=== PATIENT | female | born 1940 | race Caucasian/White ===

== ENCOUNTER 2018-05-31 16:51 | Observation (INO) | payer MEDICARE, OTHER ==
[2018-05-31] MEDS: Amoxicillin/Clavulanate K 875-125 MG Tab PO SCH (19:48)
[2018-05-31] MEDS: Non-Formulary Medication 1 Each (Fluticasone/Salmeterol [Advair 250-50 Diskus] 1 PUFF) INH SCH (19:48)
[2018-05-31] MEDS: Non-Formulary Medication 1 Each (Metoprolol Tartrate [Metoprolol Tartrate] 50 MG) PO SCH (19:51)
[2018-05-31] MEDS ORDERED: Famotidine 20 MG Tab PO PRN (20:00)
--- NOTE | 2018-05-31 23:27 | ER ---
HPI: A 78-year-old lady who comes in with complaints of shortness of breath. She states that she gets short of breath with any little type of activity or movement that she does around her home. The patient has been dealing with this for a few days. She was seen in the emergency room on Monday and again in the clinic on Monday. She was given nebulizer treatments and some prednisone. She does not feel this has helped her. She states that her throat is sore, and she is now feeling like her pulse is racing after she takes her nebulizer treatment. The patient states that she does have some coughing, but it is nonproductive. PAST MEDICAL HISTORY: Includes anxiety and COPD. OBJECTIVE: GENERAL APPEARANCE: The patient is awake and alert. No respiratory distress at this time. VITAL SIGNS: Initially show a blood pressure of 168/85, O2 sats are 84% on room air, respirations 22, pulse 80, temp is 97.5, 2 L of oxygen were started and this brought her sats up to 95% fairly quickly. Physical exam, oral mucous membranes moist. Posterior pharynx shows moderate redness. There is some posterior wall drainage as well. The patient does have bimaxillary sinus tenderness with palpation. NECK: Supple. LUNGS: Reveals significant reduced reduction in air exchange, but the lung sounds are clear. I do not hear any rales, wheezes, or rhonchi today. CARDIAC: Heart sounds distinct without murmurs. SKIN: Warm and dry. LABS: CBC shows a slightly elevated white count of 11.3. Neutrophils are also elevated at 89.6. CMP is unremarkable. DIAGNOSES: 1. Shortness of breath with hypoxia. due to chronic obstructive pulmonary disease. 2. Sinusitis. 3. Pharyngitis. TREATMENT PLAN: A chest x-ray was obtained and there is no sign of infection or pneumothorax. The patient is feeling much better on oxygen and her sats remain in the low to mid 90s on 2 L of O2. In discussing the patient's case with nursing staff, it appears that she needs to be admitted on observation in order to be connected with respiratory therapy in order to get set up for home O2, so that is what we will do. The patient will be admitted for observation for shortness of breath/COPD. Secondary diagnosis is sinusitis/pharyngitis. I will start her on Augmentin, and we will keep her on O2 of 2 L overnight until she can follow up tomorrow with respiratory therapy. The patient has no further questions. CRS/MODL /[id number] MTDD
--- NOTE | 2018-06-01 00:27 | HP ---
HISTORY OF PRESENT ILLNESS: This 78-year-old lady has been admitted for observation through the emergency room for COPD with shortness of breath. She is hypoxic. Her O2 sats are in the mid to upper 80s without oxygen. With 2 L of oxygen applied, her sats come up into the low to mid 90s. The patient states that with any kind of exertion, she becomes very short of breath and is unable to really do anything at home. PAST MEDICAL HISTORY: Includes: 1. COPD. 2. GERD. 3. Hypertension. 4. History of tachycardia. CURRENT MEDICATIONS: Zantac 150 mg a day, metoprolol tartrate 50 mg b.i.d., Advair 250/50 one puff b.i.d. OBJECTIVE: GENERAL APPEARANCE: The patient is awake and alert. She was short of breath upon arrival to the emergency room. After starting the oxygen, her shortness of breath resolved and she has been breathing normally since. VITAL SIGNS: Initially taken in the emergency room reveal a blood pressure of 168/85, respirations 22, O2 sats 95%, she is afebrile, pulse is 80. LUNGS: Exam today reveals reduced air exchange, but the lungs are clear. CARDIAC: Heart sounds distinct without murmurs. HEENT: Oral mucous membranes moist. Pharynx is moderately erythematous. Neck is supple. Ears, TMs are dull, otherwise normal. SKIN: Warm and dry. ABDOMEN: Soft and nontender. ASSESSMENT AND PLAN: The patient is being admitted for observation. Arrangements will be made with respiratory therapy tomorrow as I feel the patient needs to be on home O2 in order to safely return home. We will start her on Augmentin for sinus infection and pharyngitis and further evaluation can be done tomorrow. Hopefully, she can be started on home O2 and discharged. CRS/MODL
[2018-06-01] MEDS: Albuterol 0.083% 2.5 MG/3 ML Neb Soln NEB PRN ×2 (04:00→09:32)
[2018-06-01] MEDS: Non-Formulary Medication 1 Each (Fluticasone/Salmeterol [Advair 250-50 Diskus] 1 PUFF) INH SCH (08:22)
[2018-06-01] MEDS: Non-Formulary Medication 1 Each (Metoprolol Tartrate [Metoprolol Tartrate] 50 MG) PO SCH (08:23)
[2018-06-01] MEDS ORDERED: cefTRIAXone 1 GM Vial IM ONE (08:43)
[2018-06-01] MEDS: Amoxicillin/Clavulanate K 875-125 MG Tab PO SCH (09:30)
--- NOTE | 2018-06-01 10:09 | PCM.DCSUM1 ---
Discharge Summary - Hospital Course HPI Initial Comments: 78 yr female with COPD, sinus infection, and decrease in SpO2 to 80% on room air. She is feeling short of breath and has been having little activity related to this. She would benefit from home oxygen and she would benefit from portable oxygen for increase in her mobility. [facility]. Diagnosis: Stroke: No - Discharge Data Discharge Date: 06/01/18 Discharge Disposition: Home, Self-Care 01 Condition: Good - Patient Summary/Data Consults: Consultations 05/31/18 18:07 Consult to Pulmonary Rehabilitation [CONS] Routine Comment: Physician Instructions: - Patient Instructions Diet: Heart Healthy Diet Activity: As Tolerated, Rest and Relax Today Activity, Other: Home oxygen needed Driving: Do Not Drive Showering/Bathing: January Shower Notify Provider of: Fever - Discharge Plan *PRESCRIPTION DRUG MONITORING PROGRAM REVIEWED*: Not Applicable *COPY OF PRESCRIPTION DRUG MONITORING REPORT IN PATIENT KENNEDI: Not Applicable Home Medications: Home Meds Fluticasone/Salmeterol [Advair 250-50 Diskus] 1 puff INH BID 08/10/14 [History] Metoprolol Tartrate 50 mg PO BID 08/10/14 [History] Ranitidine HCl [Zantac] 150 mg PO DAILY PRN 11/19/15 [History] Patient Handouts: Hypoxemia, How to Use a Nebulizer, Adult, Chronic Obstructive Pulmonary Disease, [id number], Pursed Lip Breathing Forms: ED Department Discharge Referrals: Tory Saba, [employer] [Primary Care Provider] - - Discharge Summary/Plan Comment DC Time >30 min.: No Discharge Summary/Plan Comment: Follow-up in clinic in 7-10 days. Home oxygen ordered today. Pt would benefit from portable oxygen to maintain mobility and independence. Continue with home nebulizer. May try 1/2 dose Duo-neb. and add Saline to each nebulizer. This was ordered at the pharmacy for you. Augmentin liquid (antibiotic) is at the pharmacy too. Start 2x/day for 10 days. - General Info Date of Service: 06/01/18 Subjective Update: Pt states she didn't take her Augmentin at home. She was having problems swallowing the pill and thought it was potassium. Functional Status: Reports: Tolerating Diet, Incentive Spirometry - Review of Systems General: Reports: Fatigue. Denies: Fever HEENT: Reports: No Symptoms Pulmonary: Reports: Shortness of Breath, Cough (Reports yellow phlegm today), Wheezing Cardiovascular: Reports: Dyspnea on Exertion Gastrointestinal: Reports: No Symptoms Genitourinary: Reports: No Symptoms Musculoskeletal: Reports: No Symptoms Skin: Reports: No Symptoms Neurological: Reports: No Symptoms Psychiatric: Reports: No Symptoms - Patient Data Vitals - Most Recent: Last Vital Signs Temp 97.4 F 06/01/18 08:00 Pulse 71 06/01/18 08:00 Resp 18 06/01/18 08:00 BP 148/74 H 06/01/18 08:00 Pulse Ox 86 L 06/01/18 09:43 Weight - Most Recent: 116 lb 3.2 oz Lab Results - Last 24 hrs: Laboratory Results - last 24 hr 05/31/18 05/31/18 06/01/18 Range/Units 17:30 17:30 08:42 WBC 11.3 H D 13.3 H (4.0-11.0) K/uL RBC 4.99 4.82 (3.80-5.80) M/uL Hgb 14.4 14.0 (11.5-16.5) g/dL Hct 43.5 42.4 (37.0-47.0) % MCV 87 88 (76-96) fL MCH 28.9 29.0 (27.0-32.0) pg MCHC 33.1 33.0 (31.0-35.0) g/dL RDW 15.0 15.1 (11.0-16.0) % Plt Count 275 291 (150-500) K/uL MPV 9.9 9.6 (6.0-10.0) fL Neut % (Auto) 89.6 H 66.8 (45.0-70.0) % Lymph % (Auto) 7.5 L 20.1 (20.0-40.0) % [place] % (Auto) 2.8 L 12.3 H (3.0-10.0) % Eos % (Auto) 0.0 L 0.7 L (1.0-5.0) % Baso % (Auto) 0.1 0.1 (0.0-0.5) % Neut # (Auto) 10.10 H 8.89 H (2.00-7.50) K/uL Lymph # (Auto) 0.84 L 2.67 (1.50-4.00) K/uL [place] # (Auto) 0.32 1.64 H (0.20-0.80) K/uL Eos # (Auto) 0.00 L 0.09 (0.04-0.40) K/uL Baso # (Auto) 0.01 L 0.01 L (0.02-0.10) K/uL Sodium 141 (136-145) mmol/L Potassium 3.8 (3.5-5.1) mmol/L Chloride 102 (98-107) mmol/L Carbon Dioxide 30.9 (21.0-32.0) mmol/L Anion Gap 11.9 (5.0-15.0) mmol/L BUN 15 (8-26) mg/dL Creatinine 0.69 (0.55-1.02) mg/dL Est Cr Clr Drug Dosing 56.48 mL/min Estimated GFR (MDRD) > 60 (>60) MLS/MIN BUN/Creatinine Ratio 21.7 (6-25) Glucose 122 H (74-100) mg/dL Calcium 8.7 (8.5-10.1) mg/dL Total Bilirubin 0.5 D (0.0-1.0) mg/dL AST 19 (15-37) U/L ALT 23 (12-78) U/L Alkaline Phosphatase 76 (46-116) U/L Total Protein 6.9 (6.4-8.2) g/dL Albumin 3.7 (3.4-5.0) g/dL Globulin 3.2 (2.2-4.2) g/dL Albumin/Globulin Ratio 1.2 (0.8-2.0) Med Orders - Current: Current Medications Albuterol (Proventil Neb Soln) 2.5 mg NEB Q4H PRN PRN Reason: Wheezing Last Admin: 06/01/18 09:32 Dose: 2.5 mg Amoxicillin/Clavulanate Potassium (Augmentin 875 Mg/125 Mg) 1 tab PO Q12HR MJ Last Admin: 06/01/18 09:30 Dose: 1 tab Famotidine (Pepcid) 20 mg PO DAILY PRN PRN Reason: heartburn Non-Formulary Medication (Fluticasone/Salmeterol [Advair 250-50 Diskus]) 1 puff INH BID [facility] Last Admin: 06/01/18 08:22 Dose: 1 puff Non-Formulary Medication (Metoprolol Tartrate [Metoprolol Tartrate]) 50 mg PO BID [facility] Last Admin: 06/01/18 08:23 Dose: 50 mg Discontinued Medications Ceftriaxone Sodium (Rocephin) 1 gm IM ONETIME ONE Stop: 06/01/18 08:44 Last Admin: 06/01/18 09:42 Dose: 1 gm - Exam Quality Assessment: Reports: Supplemental Oxygen General: Reports: Alert, Oriented HEENT: Reports: Mucous Membr. Moist/[place] Neck: Reports: Supple, Trachea Midline Lungs: Reports: Normal Respiratory Effort, Decreased Breath Sounds (bilaterally) , Wheezing, Other (SpO2 78% on exertion on RA.). Denies: Crackles Cardiovascular: Reports: Regular Rate, Regular Rhythm GI/Abdominal Exam: Soft, Non-Tender Skin: Reports: Warm, Dry Psy/Mental Status: Reports: Alert, Normal Affect, Normal Mood
[2018-06-01 12:52] VITALS: BP 154/78
--- NOTE | 2018-06-03 09:35 | CR ---
DATE OF SERVICE: 05/31/18 CLINICAL DATA: SOB. AP PORTABLE CHEST: Comparison is made to a prior exam dated 05/27/18. The heart and lungs are stable. No evidence of acute intrathoracic disease. [id number] [facility]
== END 2018-06-01 14:25 | disposition home or self-care (01) ==
LOC: LB.ED 16:51 → LB.MS 18:02 → UNDOADMOB 18:14 → LB.MS 18:14
PROVIDERS: ADMIT Physician Assistant; ATTEND Physician Assistant
DX: J44.9 Chronic obstructive pulmonary disease, unspecified (principal); I10 Essential (primary) hypertension; K21.9 Gastro-esophageal reflux disease without esophagitis; Z79.51 Long term (current) use of inhaled steroids; Z79.899 Other long term (current) drug therapy
CPT/HCPCS: 36415; 71045; 80053; 85025; 96372; 99285-25; A9270-GY; J0696

== ENCOUNTER 2019-02-28 10:56 | Day surgery (SDC) | payer MEDICARE, OTHER ==
[~2019-02-28 10:56] MED LIST: Sodium Chloride 0.9% 1,000 ML IV SCH
[2019-02-28] MEDS ORDERED: Propofol 1,000 MG/100 ML SDV ONE (13:09)
[2019-02-28] MEDS ORDERED: Albuterol/Ipratropium 3.0-0.5 MG/3 ML Neb Soln ONE (13:27)
[2019-02-28] MEDS ORDERED: Albuterol/Ipratropium 3.0-0.5 MG/3 ML Neb Soln NEB PRN (13:30)
--- NOTE | 2019-02-28 15:16 | OR ---
DATE OF OPERATION: 02/28/2019 PREOPERATIVE DIAGNOSIS: Ashraf's esophagus. POSTOPERATIVE DIAGNOSIS: Ashraf's esophagus. PROCEDURE: Attempted esophagogastroduodenoscopy/incomplete. ANESTHESIA: MAC. ESTIMATED BLOOD LOSS: None. COMPLICATIONS: None. INDICATIONS FOR PROCEDURE: The patient is a 79-year-old female with history of Ashraf's esophagus discovered 3 years ago, no change in her reflux at all. Over the last 3 years, she has been complaining of a chronic cough. She is an active smoker. DESCRIPTION OF THE PROCEDURE: Informed consent was obtained with the patient. The patient was taken to the operating room and placed on the table in the left lateral decubitus position. Monitored anesthesia care was administered. The patient was coughing throughout the procedure. Esophagogastroscope was then advanced through the oral cavity. It did reach down to the level of the pharynx, but her hypopharynx unable to intubate the esophagus secondary to secretions as well as persistent coughing. Multiple attempts at re -positioning and re-intubation attempted, however, unable to complete the procedure. The scope was then withdrawn. FINDINGS: Incomplete EGD, secondary to secretions and coughing. RECOMMENDATIONS: Given the degree of COPD and then persistent cough, would not recommend persistent surveillance for Ashraf's at this time. May attempt again once cough has resolved. May consider trying PPI therapy prophylatically. LUCI /[id number] MEMO
[2019-02-28 15:28] VITALS: BP 129/59; PULSE 77
== END 2019-02-28 15:20 | disposition home or self-care (01) ==
LOC: LB.SDS 10:56
PROVIDERS: ATTEND Surgery
DX: K21.9 Gastro-esophageal reflux disease without esophagitis (principal); K22.70 Barrett's esophagus without dysplasia; J44.9 Chronic obstructive pulmonary disease, unspecified; F17.210 Nicotine dependence, cigarettes, uncomplicated; Z79.899 Other long term (current) drug therapy
CPT/HCPCS: 43200; J2704; J7030; 43246; J7620-GY

== ENCOUNTER 2019-03-18 18:23 | Observation (INO) | payer MEDICARE, OTHER ==
[2019-03-18] MEDS ORDERED: Sodium Chloride 0.9% 1,000 ML IV SCH (18:45)
[2019-03-18] MEDS: HYDROmorphone 2 MG/ML Syringe IVPUSH PRN ×2 (18:48→23:40)
--- NOTE | 2019-03-18 18:57 | EDM.PDOC ---
ED HPI GENERAL MEDICAL PROBLEM - General Chief Complaint: General Stated Complaint: LEFT FLANK PAIN Time Seen by Provider: 03/18/19 18:40 Source of Information: Reports: Patient, RN History Limitations: Reports: No Limitations - History of Present Illness INITIAL COMMENTS - FREE TEXT/NARRATIVE: 79 yr female presents with left sided flank pain. States pain started about 130pm today. States she tried drinking extra water today and tried everything she could think of and the pain is worse. states little appetite, but never hungry. States little urine output at times. States no history of kidney stones. She does have a hx of COPD and did user her nebulizer and oxygen before coming in to the ER. She does have hypertension and takes Metoprolol bid. States she did have a hard BM today and did have some supper tonight. - Related Data Allergies Allergy/AdvReac Type Severity Reaction Status Date / Time No Known Allergies Allergy Verified 03/18/19 19:07 Home Meds: Home Meds Fluticasone/Salmeterol [Advair 250-50 Diskus] 1 puff INH BID 08/10/14 [History] Metoprolol Tartrate 50 mg PO BID 08/10/14 [History] Albuterol/Ipratropium [DuoNeb 3.0-0.5 MG/3 ML] 3 ml NEB Q4HR PRN 02/26/19 [ History] Past Medical History HEENT History: Reports: Cataract, Impaired Vision, Macular Degeneration, Other ( See Below) Other HEENT History: wears glasses Cardiovascular History: Reports: Blood Clots/VTE/DVT, Hypertension, SOB on Exertion, Other (See Below) Other Cardiovascular History: pt states she has a faster heart rate; blood clot Left leg 2017 Respiratory History: Reports: COPD, SOB Gastrointestinal History: Reports: GERD Genitourinary History: Reports: None, Urinary Incontinence [employer] 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: Musculoskeletal History: Reports: Fracture Other Musculoskeletal History: Broken arm Neurological History: Reports: Seizure, Other (See Below) Other Neuro History: epilepsy as a child - stopped in 1970s Psychiatric History: Reports: Depression Endocrine/Metabolic History: Reports: None Oncologic (Cancer) History: Reports: Breast - Past Surgical History HEENT Surgical History: Reports: None, Cataract Surgery Cardiovascular Surgical History: Reports: None Respiratory Surgical History: Reports: None GI Surgical History: Reports: Cholecystectomy, EGD, Esophageal Dilatation Female Surgical History: Reports: Hysterectomy Other Musculoskeletal Surgeries/Procedures:: Titanium everardo in left upper arm Oncologic Surgical History: Reports: Lumpectomy, Mastectomy, Other (See Below) Other Oncologic Surgeries/Procedures: Left side mastectomy Dermatological Surgical History: Reports: None Social & Family History - Family History Family Medical History: Noncontributory - Caffeine Use Caffeine Use: Reports: Coffee Other Caffeine Use: 12 ED ROS GENERAL - Review of Systems Review Of Systems: See Below Constitutional: Reports: Weakness. Denies: Fever, Chills HEENT: Reports: Glasses Respiratory: Reports: Cough. Denies: Wheezing, Hemoptysis Cardiovascular: Reports: No Symptoms GI/Abdominal: Reports: Decreased Appetite, Other (some constipation). Denies: Hematochezia, Melena, Nausea, Vomiting : Reports: Flank Pain, Other (decrease in urination) Musculoskeletal: Reports: No Symptoms Skin: Reports: No Symptoms Neurological: Reports: No Symptoms Psychiatric: Reports: No Symptoms ED EXAM, GENERAL - Physical Exam Exam: See Below Exam Limited By: No Limitations General Appearance: Alert, No Apparent Distress Ears: Hearing Grossly Normal Nose: Normal Inspection, Normal Mucosa Throat/Mouth: Normal Inspection, Normal Lips, Normal Voice, No Airway Compromise Head: Atraumatic, Normocephalic Neck: Normal Inspection, Supple, Non-Tender Respiratory/Chest: No Respiratory Distress, Normal Breath Sounds Cardiovascular: Normal Peripheral Pulses, Regular Rate, Rhythm, No Edema GI/Abdominal: Normal Bowel Sounds, Soft, Non-Tender Extremities: Normal Inspection, Normal Range of Motion, Non-Tender Neurological: Alert, Oriented, Normal Cognition Psychiatric: Normal Affect, Normal Mood Skin Exam: Warm, Dry, Normal Color Course - Vital Signs Last Recorded V/S: Last Vital Signs Temp 97.7 F 03/18/19 21:50 Pulse 89 03/18/19 21:50 Resp 22 H 03/18/19 21:50 BP 170/79 H 03/18/19 21:50 Pulse Ox 96 03/18/19 21:50 - Orders/Labs/Meds Orders: Active Orders 24 hr Category Date Time Status Abdomen Pelvis wo Cont [CT] Stat Exams 03/18/19 18:45 Taken HYDROmorphone [Dilaudid] Med 03/18/19 18:46 Active 0.5 mg IVPUSH Q3H PRN Medication Orders Albuterol/Ipratropium (Duoneb 3.0-0.5 Mg/3 Ml) 3 ml INH Q4H PRN PRN Reason: Shortness of Breath Last Admin: 03/18/19 21:55 Dose: 3 ml Hydromorphone HCl (Dilaudid) 0.5 mg IVPUSH Q3H PRN PRN Reason: Pain Last Admin: 03/18/19 23:40 Dose: 0.5 mg Promethazine HCl 25 mg/ Sodium (Chloride) 51 mls @ 200 mls/hr IV Q6H PRN PRN Reason: Nausea/Vomiting Lactated Ringer's (Ringers, Lactated) 1,000 mls @ 75 mls/hr IV ASDIRECTED [facility] Non-Formulary Medication (Fluticasone/Salmeterol [Advair 250-50 Diskus]) 1 puff INH BID [facility] Last Admin: 03/18/19 22:00 Dose: Not Given Non-Formulary Medication (Metoprolol Tartrate [Metoprolol Tartrate]) 50 mg PO BID [facility] Last Admin: 03/18/19 22:10 Dose: 50 mg Labs: Laboratory Tests 03/18/19 03/18/19 03/18/19 Range/Units 18:42 18:42 18:42 WBC 12.0 H (4.0-11.0) K/uL RBC 5.12 (3.80-5.80) M/uL Hgb 14.8 (11.5-16.5) g/dL Hct 45.1 (37.0-47.0) % MCV 88 (76-96) fL MCH 28.9 (27.0-32.0) pg MCHC 32.8 (31.0-35.0) g/dL RDW 14.8 (11.0-16.0) % Plt Count 304 (150-500) K/uL MPV 10.3 H (6.0-10.0) fL Neut % (Auto) 70.9 H (45.0-70.0) % Lymph % (Auto) 13.8 L (20.0-40.0) % [place] % (Auto) 8.0 (3.0-10.0) % Eos % (Auto) 7.0 H (1.0-5.0) % Baso % (Auto) 0.3 (0.0-0.5) % Neut # (Auto) 8.50 H (2.00-7.50) K/uL Lymph # (Auto) 1.66 (1.50-4.00) K/uL [place] # (Auto) 0.96 H (0.20-0.80) K/uL Eos # (Auto) 0.84 H (0.04-0.40) K/uL Baso # (Auto) 0.03 (0.02-0.10) K/uL Sodium 134 L (136-145) mmol/L Potassium 3.3 L (3.5-5.1) mmol/L Chloride 96 L (98-107) mmol/L Carbon Dioxide 29.3 (21.0-32.0) mmol/L Anion Gap 12.0 (5.0-15.0) mmol/L BUN 16 D (8-26) mg/dL Creatinine 0.70 (0.55-1.02) mg/dL Est Cr Clr Drug Dosing TNP Estimated GFR (MDRD) > 60 (>60) MLS/MIN BUN/Creatinine Ratio 22.9 (6-25) Glucose 119 H (74-100) mg/dL Calcium 9.2 (8.5-10.1) mg/dL Total Bilirubin 0.4 (0.0-1.0) mg/dL AST 16 (15-37) U/L ALT 18 (12-78) U/L Alkaline Phosphatase 110 (46-116) U/L Total Protein 7.7 (6.4-8.2) g/dL Albumin 4.0 (3.4-5.0) g/dL Globulin 3.7 (2.2-4.2) g/dL Albumin/Globulin Ratio 1.1 (0.8-2.0) Urine Color Yellow Urine Appearance Clear (CLEAR) Urine pH 7.0 (5.0-8.0) Ur Specific [place] 1.025 (1.003-1.030) Urine Protein Trace H (NEGATIVE) mg/dL Urine Glucose (UA) Negative (NEGATIVE) mg/dL Urine Ketones Negative (NEGATIVE) mg/dL Urine Occult Blood Trace-intact H (NEGATIVE) Urine Nitrite Negative (NEGATIVE) Urine Bilirubin Negative (NEGATIVE) Urine Urobilinogen 1.0 (0.2-1.0) E.U./dL Ur Leukocyte Esterase Negative (NEGATIVE) Urine RBC 0-5 H /HPF Urine WBC 0-5 H /HPF Ur Squamous Epith Cells Few /HPF Hyaline Casts Few /HPF Meds: Medications Generic Name Dose Route Start Last Admin Trade Name Dennis PRN Reason Stop Dose Admin Albuterol/Ipratropium 3 ml 03/18/19 20:44 03/18/19 21:55 Duoneb 3.0-0.5 Mg/3 Ml INH 3 ml Q4H PRN Administration Shortness of Breath Hydromorphone HCl 0.5 mg 03/18/19 18:46 03/18/19 23:40 Dilaudid IVPUSH 0.5 mg Q3H PRN Administration Pain Promethazine HCl 25 mg/ Sodium 51 mls @ 200 mls/hr 03/18/19 20:34 Chloride IV Q6H PRN Nausea/Vomiting Lactated Ringer's 1,000 mls @ 75 mls/hr 03/19/19 01:30 Ringers, Lactated IV ASDIRECTED MJ Non-Formulary Medication 1 puff 03/18/19 20:45 03/18/19 22:00 Fluticasone/Salmeterol [Advair 250-50 Diskus] INH Not Given BID MJ Non-Formulary Medication 50 mg 03/18/19 20:45 03/18/19 22:10 Metoprolol Tartrate [Metoprolol Tartrate] PO 50 mg BID MJ Administration Discontinued Medications Generic Name Dose Route Start Last Admin Trade Name Dennis PRN Reason Stop Dose Admin Hydromorphone HCl Confirm 03/18/19 23:32 03/18/19 23:49 Dilaudid Administered 03/18/19 23:33 Not Given Dose 2 mg .ROUTE .STK-MED ONE Sodium Chloride 1,000 mls @ 125 mls/hr 03/18/19 18:45 03/18/19 22:47 Normal Saline IV 125 mls/hr ASDIRECTED MJ Infusion - Re-Assessments/Exams Free Text/Narrative Re-Assessment/Exam: 03/18/19 20:42 Labs reviewed, WBC 12. and Sodium and potassium slightly low. No UTI noted. CT results/preliminary of possible partial bowel obstruction, large amount of stool in the colon and none in rectum. Non obstructing right renal calculi. Will place pt on observation and place pt NPO with sips of water for taking BP medication. Will continue medications as home, with nebulizer, inhaler, Metoprolol and oxygen prn. Will continue IV fluids of Nacl @ 125cc/hr. VS q 4 hour. May need to start N/G tube if abdominal pain increases. Phenergan 25 MG IV now. Will repeat CBC and BMP in am. If pain increases, may need surgical consult. Departure - Departure Time of Disposition: 20:39 Disposition: Refer to Observation Condition: Good Clinical Impression: Partial small bowel obstruction - Discharge Information *PRESCRIPTION DRUG MONITORING PROGRAM REVIEWED*: Not Applicable *COPY OF PRESCRIPTION DRUG MONITORING REPORT IN PATIENT KENNEDI: Not Applicable - My Orders Last 24 Hours: My Active Orders 03/18/19 18:45 Abdomen Pelvis wo Cont [CT] Stat 03/18/19 18:46 HYDROmorphone [Dilaudid] 0.5 mg IVPUSH Q3H PRN - Assessment/Plan Last 24 Hours: My Active Orders 03/18/19 18:45 Abdomen Pelvis wo Cont [CT] Stat 03/18/19 18:46 HYDROmorphone [Dilaudid] 0.5 mg IVPUSH Q3H PRN Plan: Will place pt on observation for partial bowel obstruction and place pt NPO with sips of water for taking BP medication. Will continue medications as home , with nebulizer, inhaler, Metoprolol and oxygen prn. Will continue IV fluids of Nacl @ 125cc/hr. VS q 4 hour. May need to start N/G tube if abdominal pain increases. Phenergan 25 MG IV now. Will repeat CBC and BMP in am. If pain increases, may need surgical consult.
[2019-03-18] MEDS ORDERED: Promethazine 25 MG in Sodium Chloride 0.9% 50 ML IV PRN (20:34)
[2019-03-18] MEDS ORDERED: Non-Formulary Medication 1 Each (Fluticasone/Salmeterol [Advair 250-50 Diskus] 1 PUFF) INH SCH (20:45)
[2019-03-18] MEDS ORDERED: Non-Formulary Medication 1 Each (Metoprolol Tartrate [Metoprolol Tartrate] 50 MG) PO SCH (20:45)
[2019-03-18] MEDS: ALBUTEROL INH PRN (21:55)
[2019-03-18] MEDS: IPRATROPIUM INH PRN (21:55)
[2019-03-18] MEDS ORDERED: HYDROmorphone 2 MG/ML SDV ONE (23:32)
[2019-03-19] MEDS: ALBUTEROL INH PRN ×4 (01:56→18:16)
[2019-03-19] MEDS: IPRATROPIUM INH PRN ×4 (01:56→18:16)
[2019-03-19] MEDS: Lactated Ringers 1,000 ML IV SCH ×2 (02:05→15:38)
[2019-03-19] MEDS ORDERED: Formoterol/Mometasone 200-5 MCG 8.8 GM Inhaler IH SCH (08:00)
[2019-03-19] MEDS: ADVAIR INH SCH ×2 (08:30→20:20)
[2019-03-19] MEDS: Metoprolol Tartrate 50 MG Tab **OWN MED PO SCH ×2 (08:30→20:20)
--- NOTE | 2019-03-19 09:24 | CRLCT ---
DATE OF SERVICE: 03/18/19 CLINICAL DATA: flank pain UNENHANCED ABDOMEN AND PELVIC CT: Multislice acquisition through the abdomen and pelvis without IV or oral contrast was performed. No priors. The lungs bases are clear. The unenhanced liver appears normal. The patient is status post cholecystectomy. There are multiple calcifications within the spleen consistent with prior granulomatous disease. The spleen otherwise appears normal. The pancreas appears normal. The right and left adrenals appear normal. There is a 3 mm nonobstructing renal calculi on the right. The right and left kidneys otherwise appear normal. No hydronephrosis or hydroureter. The bladder is partially fluid filled. It appears grossly normal. The patient is status post hysterectomy. There is a hernia involving the floor of the pelvis on the right. The hernia sac does contain a loop of small bowel. No definite evidence for obstruction associated with it. There is a large amount of stool noted in the ascending, transverse, and descending colon. No free air. No free fluid. No dilated loops of bowel. No adenopathy. No aortic aneurysm. The stomach is fluid and gas filled and moderately distended. Gastric outlet obstruction should be considered. No other significant findings. IMPRESSION: Multiple findings as discussed above. [id number] MTDD
[2019-03-19] MEDS ORDERED: Acetaminophen 650 MG Tab.ER PO PRN (09:53)
[2019-03-19] MEDS ORDERED: HYDROmorphone 2 MG/ML SDV ONE ×3 (13:06→20:02)
[2019-03-19] MEDS: HYDROmorphone 2 MG/ML Syringe IVPUSH PRN ×3 (13:16→20:24)
--- NOTE | 2019-03-19 14:17 | PCM.PN ---
- General Info Date of Service: 03/19/19 Admission Dx/Problem (Free Text): Partial bowel obstruction and left flank pain Subjective Update: This am pt states she is feeling better and is hungry. States some pain this am and starting to have a little pain again. States some confusion after the pain medicine today and after the Phenergan. Functional Status: Reports: Pain Controlled, Urinating - Review of Systems General: Reports: No Symptoms HEENT: Reports: Glasses. Denies: Ear Pain, Headaches, Sore Throat Pulmonary: Reports: Cough. Denies: Sputum Cardiovascular: Reports: No Symptoms Gastrointestinal: Reports: Abdominal Pain, Other (hungry). Denies: Diarrhea, Vomiting Genitourinary: Reports: No Symptoms Musculoskeletal: Reports: No Symptoms Skin: Reports: No Symptoms Psychiatric: Reports: No Symptoms - Patient Data Vitals - Most Recent: Last Vital Signs Temp 98 F 03/19/19 08:00 Pulse 88 03/19/19 08:30 Resp 22 H 03/19/19 08:00 BP 134/61 03/19/19 08:30 Pulse Ox 93 L 03/19/19 08:00 Weight - Most Recent: 106 lb I&O - Last 24 Hours: Intake & Output 03/18/19 03/19/19 03/19/19 22:59 06:59 14:59 Intake Total 660 1535 Output Total 400 Balance 660 1135 Lab Results Last 24 Hours: Laboratory Results - last 24 hr 03/18/19 03/18/19 03/18/19 Range/Units 18:42 18:42 18:42 WBC 12.0 H (4.0-11.0) K/uL RBC 5.12 (3.80-5.80) M/uL Hgb 14.8 (11.5-16.5) g/dL Hct 45.1 (37.0-47.0) % MCV 88 (76-96) fL MCH 28.9 (27.0-32.0) pg MCHC 32.8 (31.0-35.0) g/dL RDW 14.8 (11.0-16.0) % Plt Count 304 (150-500) K/uL MPV 10.3 H (6.0-10.0) fL Neut % (Auto) 70.9 H (45.0-70.0) % Lymph % (Auto) 13.8 L (20.0-40.0) % [place] % (Auto) 8.0 (3.0-10.0) % Eos % (Auto) 7.0 H (1.0-5.0) % Baso % (Auto) 0.3 (0.0-0.5) % Neut # (Auto) 8.50 H (2.00-7.50) K/uL Lymph # (Auto) 1.66 (1.50-4.00) K/uL [place] # (Auto) 0.96 H (0.20-0.80) K/uL Eos # (Auto) 0.84 H (0.04-0.40) K/uL Baso # (Auto) 0.03 (0.02-0.10) K/uL Sodium 134 L (136-145) mmol/L Potassium 3.3 L (3.5-5.1) mmol/L Chloride 96 L (98-107) mmol/L Carbon Dioxide 29.3 (21.0-32.0) mmol/L Anion Gap 12.0 (5.0-15.0) mmol/L BUN 16 D (8-26) mg/dL Creatinine 0.70 (0.55-1.02) mg/dL Est Cr Clr Drug Dosing TNP Estimated GFR (MDRD) > 60 (>60) MLS/MIN BUN/Creatinine Ratio 22.9 (6-25) Glucose 119 H (74-100) mg/dL Calcium 9.2 (8.5-10.1) mg/dL Total Bilirubin 0.4 (0.0-1.0) mg/dL AST 16 (15-37) U/L ALT 18 (12-78) U/L Alkaline Phosphatase 110 (46-116) U/L Total Protein 7.7 (6.4-8.2) g/dL Albumin 4.0 (3.4-5.0) g/dL Globulin 3.7 (2.2-4.2) g/dL Albumin/Globulin Ratio 1.1 (0.8-2.0) Urine Color Yellow Urine Appearance Clear (CLEAR) Urine pH 7.0 (5.0-8.0) Ur Specific [place] 1.025 (1.003-1.030) Urine Protein Trace H (NEGATIVE) mg/dL Urine Glucose (UA) Negative (NEGATIVE) mg/dL Urine Ketones Negative (NEGATIVE) mg/dL Urine Occult Blood Trace-intact H (NEGATIVE) Urine Nitrite Negative (NEGATIVE) Urine Bilirubin Negative (NEGATIVE) Urine Urobilinogen 1.0 (0.2-1.0) E.U./dL Ur Leukocyte Esterase Negative (NEGATIVE) Urine RBC 0-5 H /HPF Urine WBC 0-5 H /HPF Ur Squamous Epith Cells Few /HPF Hyaline Casts Few /HPF 03/19/19 03/19/19 Range/Units 07:30 07:30 WBC 9.2 D (4.0-11.0) K/uL RBC 4.58 (3.80-5.80) M/uL Hgb 13.4 (11.5-16.5) g/dL Hct 40.6 (37.0-47.0) % MCV 89 (76-96) fL MCH 29.3 (27.0-32.0) pg MCHC 33.0 (31.0-35.0) g/dL RDW 14.7 (11.0-16.0) % Plt Count 252 (150-500) K/uL MPV 9.9 (6.0-10.0) fL Neut % (Auto) 67.4 (45.0-70.0) % Lymph % (Auto) 17.9 L (20.0-40.0) % [place] % (Auto) 9.3 (3.0-10.0) % Eos % (Auto) 5.2 H (1.0-5.0) % Baso % (Auto) 0.2 (0.0-0.5) % Neut # (Auto) 6.17 (2.00-7.50) K/uL Lymph # (Auto) 1.64 (1.50-4.00) K/uL [place] # (Auto) 0.85 H (0.20-0.80) K/uL Eos # (Auto) 0.48 H (0.04-0.40) K/uL Baso # (Auto) 0.02 (0.02-0.10) K/uL Sodium 139 (136-145) mmol/L Potassium 3.8 (3.5-5.1) mmol/L Chloride 104 (98-107) mmol/L Carbon Dioxide 26.8 (21.0-32.0) mmol/L Anion Gap 12.0 (5.0-15.0) mmol/L BUN 10 D (8-26) mg/dL Creatinine 0.53 L D (0.55-1.02) mg/dL Est Cr Clr Drug Dosing TNP Estimated GFR (MDRD) > 60 (>60) MLS/MIN BUN/Creatinine Ratio 18.9 (6-25) Glucose 100 (74-100) mg/dL Calcium 8.5 (8.5-10.1) mg/dL Total Bilirubin (0.0-1.0) mg/dL AST (15-37) U/L ALT (12-78) U/L Alkaline Phosphatase (46-116) U/L Total Protein (6.4-8.2) g/dL Albumin (3.4-5.0) g/dL Globulin (2.2-4.2) g/dL Albumin/Globulin Ratio (0.8-2.0) Urine Color Urine Appearance (CLEAR) Urine pH (5.0-8.0) Ur Specific [place] (1.003-1.030) Urine Protein (NEGATIVE) mg/dL Urine Glucose (UA) (NEGATIVE) mg/dL Urine Ketones (NEGATIVE) mg/dL Urine Occult Blood (NEGATIVE) Urine Nitrite (NEGATIVE) Urine Bilirubin (NEGATIVE) Urine Urobilinogen (0.2-1.0) E.U./dL Ur Leukocyte Esterase (NEGATIVE) Urine RBC /HPF Urine WBC /HPF Ur Squamous Epith Cells /HPF Hyaline Casts /HPF Med Orders - Current: Current Medications Acetaminophen (Tylenol Arthritis Pain) 650 mg PO Q4H PRN PRN Reason: Pain Albuterol/Ipratropium (Duoneb 3.0-0.5 Mg/3 Ml) 3 ml INH Q4H PRN PRN Reason: Shortness of Breath Last Admin: 03/19/19 13:21 Dose: 3 ml Hydromorphone HCl (Dilaudid) 0.5 mg IVPUSH Q3H PRN PRN Reason: Pain Last Admin: 03/19/19 13:16 Dose: 0.5 mg Promethazine HCl 25 mg/ Sodium (Chloride) 51 mls @ 200 mls/hr IV Q6H PRN PRN Reason: Nausea/Vomiting Lactated Ringer's (Ringers, Lactated) 1,000 mls @ 75 mls/hr IV ASDIRECTED [facility] Last Admin: 03/19/19 02:05 Dose: 75 mls/hr Metoprolol Tartrate (Lopressor) 50 mg PO BID [facility] Last Admin: 03/19/19 08:30 Dose: 50 mg Advair 250/50 Diskus (Own Med) 1 each INH BID [facility] Last Admin: 03/19/19 08:30 Dose: 1 each Discontinued Medications Hydromorphone HCl (Dilaudid) Confirm Administered Dose 2 mg .ROUTE .STK-MED ONE Stop: 03/18/19 23:33 Last Admin: 03/18/19 23:49 Dose: Not Given Hydromorphone HCl (Dilaudid) Confirm Administered Dose 2 mg .ROUTE .STK-MED ONE Stop: 03/19/19 13:07 Sodium Chloride (Normal Saline) 1,000 mls @ 125 mls/hr IV ASDIRECTED [facility] Last Infusion: 03/18/19 22:47 Dose: 125 mls/hr Non-Formulary Medication (Fluticasone/Salmeterol [Advair 250-50 Diskus]) 1 puff INH BID [facility] Last Admin: 03/18/19 22:00 Dose: Not Given Non-Formulary Medication (Metoprolol Tartrate [Metoprolol Tartrate]) 50 mg PO BID [facility] Last Admin: 03/18/19 22:10 Dose: 50 mg Sodium Chloride (Normal Saline) 1,000 ml .ROUTE .STK-MED ONE Stop: 03/18/19 18:41 - Exam Quality Assessment: Supplemental Oxygen General: Alert, Oriented, Cooperative, No Acute Distress HEENT: Mucous Membr. Moist/[place] Neck: Supple, Trachea Midline Lungs: Normal Respiratory Effort, Wheezing (clears with coughing) Cardiovascular: Regular Rate, Regular Rhythm GI/Abdominal Exam: Soft, Non-Tender, No Distention Extremities: Normal Range of Motion, Non-Tender, No Pedal Edema, Normal Capillary Refill Skin: Warm, Dry Neurological: No New Focal Deficit Psy/Mental Status: Alert, Normal Affect, Normal Mood - Problem List & Annotations (1) Partial small bowel obstruction SNOMED Code(s): 370902751 Code(s): K56.600 - PARTIAL INTESTINAL OBSTRUCTION, UNSPECIFIED TO CAUSE Status: Acute Current Visit: Yes - Problem List Review Problem List Initiated/Reviewed/Updated: Yes - My Orders Last 24 Hours: My Active Orders 03/18/19 18:46 HYDROmorphone [Dilaudid] 0.5 mg IVPUSH Q3H PRN 03/18/19 20:31 Patient Status [ADT] Routine 03/18/19 20:34 Promethazine [Phenergan] 25 mg Sodium Chloride 0.9% [Normal Saline] 50 ml IV Q6H 03/18/19 20:38 Oxygen Therapy [RC] 20 Up With Assistance [RC] ASDIRECTED Vital Signs [RC] 00,04,08,12,16,20 03/18/19 20:44 Albuterol/Ipratropium [DuoNeb 3.0-0.5 MG/3 ML] 3 ml INH Q4H PRN 03/19/19 01:30 Lactated Ringers [Ringers, Lactated] 1,000 ml IV ASDIRECTED 03/19/19 02:45 Metoprolol Tartrate [Lopressor] 50 mg PO BID 03/19/19 08:00 Patient's Own Medication [Ptom] 1 each INH BID 03/19/19 09:53 Acetaminophen [Tylenol Arthritis Pain] 650 mg PO Q4H PRN 03/19/19 Breakfast Clear Liquid Diet [DIET] - Plan Plan:: Will start clear liquids and monitor for any increase in symptoms. IV rate continues at 75 cc/hr. Will discharge in am if pt tolerates advancement of diet and pain controlled.
[2019-03-20] MEDS: IPRATROPIUM INH PRN (03:43)
[2019-03-20] MEDS: ALBUTEROL INH PRN (03:43)
[2019-03-20] MEDS: Lactated Ringers 1,000 ML IV SCH (03:47)
[2019-03-20] MEDS: HYDROmorphone 2 MG/ML Syringe IVPUSH PRN (06:07)
[2019-03-20] MEDS: Metoprolol Tartrate 50 MG Tab **OWN MED PO SCH (07:19)
[2019-03-20] MEDS: ADVAIR INH SCH (07:19)
[2019-03-20] MEDS ORDERED: Diatrizoate Meglumine/Diatrizoate Sodium 37% 30 ML Bottle PO SCH (08:15)
[2019-03-20] MEDS ORDERED: cefTRIAXone 1 GM in Sodium Chloride 0.9% 50 ML IV SCH (10:45)
--- NOTE | 2019-03-20 10:58 | CT ---
DATE OF SERVICE: 03/20/2019 CLINICAL DATA: Flank pain continues Unenhanced abdomen and pelvic CT: Multislice acquisition through the abdomen and pelvis without IV contrast but with oral contrast was performed. Comparison is made to prior exam dated 03/18/2019. There are emphysematous changes in both lower lungs with fibrotic changes bilaterally. There are atelectatic changes in the dependent portion of both lower lungs with minimal consolidation of the right costophrenic angle. The liver, spleen, pancreas, and right and left adrenals are stable. The patient is status post cholecystectomy. There is a nonobstructing renal calculi in the upper pole of the right kidney. There are vascular calcifications on the left. No hydronephrosis or hydroureter. No ureteral lithiasis. There is mild perinephric fat stranding on the left on today's exam and was not present on the prior. Pyelonephritis should be considered. Bladder is fluid filled and moderately distended. Lateral obstruction should be considered. The patient is status post hysterectomy. The prior noted gastric distension has improved in the stomach and is less distended than on the prior study. The appendix is nondilated. No evidence of appendicitis. There is a large amount of gas and stool still present throughout the colon. The hernia involving the pelvic floor on the right is again seen. A loop of small bowel does protrude into the hernia sac. No evidence of obstruction associated with this hernia. There are few scattered air-fluid levels within the proximal small bowel. These loops of bowel are not distended. Enteritis should be considered. No free air. No free fluid. No adenopathy. No aortic aneurysm. MTDD
[2019-03-20] MEDS ORDERED: Ketorolac 30 MG/ML SDV IVPUSH ONE (15:11)
[2019-03-20 16:20] VITALS: BP 129/70; PULSE 88
--- NOTE | 2019-03-20 17:11 | PCM.DCSUM1 ---
Discharge Summary - Hospital Course HPI Initial Comments: 79 yr female presented to ER with left sided flank pain with little urine output , concerned of kidney stone. CT of abdomen was completed and partial bowel obstruction considered. Transferred to observation status with IV hydration and dilaudid IV for relief of pain. Pt continued with flank pain, CT with oral contrast completed today with pyelonephritis to be considered. Rocephin 1 gm IV given X 1. Toradol 30 mg IV X 1 given and pain controlled well. Costochondritis/rib pain noted today upon exam. Pyelonephritis per CT today. Discharge today with Rx for Diclofenac, probiotic, and Augmentin bid X 7 days. Moist heat to back prn. RTC 1-2 week for follow-up. Diagnosis: Stroke: No - Discharge Data Discharge Date: 03/20/19 Discharge Disposition: Home, Self-Care 01 Condition: Fair - Discharge Diagnosis/Problem(s) (1) Partial small bowel obstruction SNOMED Code(s): 874416576 ICD Code: K56.600 - PARTIAL INTESTINAL OBSTRUCTION, UNSPECIFIED TO CAUSE Status: Acute Current Visit: Yes (2) Pyelonephritis SNOMED Code(s): 12756482 ICD Code: N12 - TUBULO-INTERSTITIAL NEPHRITIS, NOT SPCF ACUTE OR CHRONIC Status: Acute Current Visit: Yes - Patient Instructions Diet: GI Soft/Low Residue/Low Fiber Activity: Rest and Relax Today Showering/Bathing: May Shower Notify Provider of: Fever, Increased Pain, Nausea and/or Vomiting - Discharge Plan *PRESCRIPTION DRUG MONITORING PROGRAM REVIEWED*: Not Applicable *COPY OF PRESCRIPTION DRUG MONITORING REPORT IN PATIENT KENNEDI: Not Applicable Prescriptions/Med Rec: Amoxicillin/Potassium Clav [Augmentin 875-125 Tablet] 1 each PO BID #14 tablet Diclofenac Sodium [Voltaren] 50 mg PO TID #15 tab.ec Home Medications: Home Meds Fluticasone/Salmeterol [Advair 250-50 Diskus] 1 puff INH BID 08/10/14 [History] Metoprolol Tartrate 50 mg PO BID 08/10/14 [History] Albuterol/Ipratropium [DuoNeb 3.0-0.5 MG/3 ML] 3 ml NEB Q4HR PRN 02/26/19 [ History] Amoxicillin/Potassium Clav [Augmentin 875-125 Tablet] 1 each PO BID #14 tablet 03/20/19 [Rx] Diclofenac Sodium [Voltaren] 50 mg PO TID #15 tab.ec 03/20/19 [Rx] Oxygen Therapy Mode: Nasal Cannula (continue as at home) Patient Handouts: Amoxicillin; Clavulanic Acid tablets, Dicloxacillin capsules , Heat Therapy Forms: ED Department Discharge Referrals: PCP,None [Primary Care Provider] - - Discharge Summary/Plan Comment DC Time >30 min.: No (Medications reviewed and RTC in 1-2 weeks) Discharge Summary/Plan Comment: Costochondritis/rib pain noted today upon exam. Pyelonephritis per CT today. Discharge today with Rx for Diclofenac, probiotic, and Augmentin bid X 7 days. Moist heat to back prn. RTC 1-2 week for follow-up. - General Info Date of Service: 03/20/19 Admission Dx/Problem (Free Text: Partial bowel obstruction and left flank pain Subjective Update: 03-20-19 This am pt states she is feeling better and is hungry. States passing flatus now and slept well. Functional Status: Reports: Pain Controlled - Review of Systems General: Reports: No Symptoms HEENT: Reports: Glasses. Denies: Ear Pain, Sore Throat Pulmonary: Reports: Cough, Sputum Cardiovascular: Reports: Dyspnea on Exertion Gastrointestinal: Reports: Flatus. Denies: Diarrhea, Vomiting Genitourinary: Reports: No Symptoms Musculoskeletal: Reports: Other (lower rib pain) Skin: Reports: No Symptoms Neurological: Reports: No Symptoms Psychiatric: Reports: No Symptoms - Patient Data Vitals - Most Recent: Last Vital Signs Temp 98.5 F 03/20/19 16:00 Pulse 88 03/20/19 16:00 Resp 18 03/20/19 16:00 BP 129/70 03/20/19 16:00 Pulse Ox 93 L 03/20/19 16:00 Weight - Most Recent: 106 lb I&O - Last 24 hours: Intake & Output 03/20/19 03/20/19 03/20/19 06:59 14:59 22:59 Intake Total 1689 Output Total 1700 Balance -11 Lab Results - Last 24 hrs: Laboratory Results - last 24 hr 03/20/19 03/20/19 Range/Units 07:32 08:05 WBC 14.2 H D (4.0-11.0) K/uL RBC 4.67 (3.80-5.80) M/uL Hgb 13.3 (11.5-16.5) g/dL Hct 41.6 (37.0-47.0) % MCV 89 (76-96) fL MCH 28.5 (27.0-32.0) pg MCHC 32.0 (31.0-35.0) g/dL RDW 14.9 (11.0-16.0) % Plt Count 235 (150-500) K/uL MPV 9.7 (6.0-10.0) fL Neut % (Auto) 77.7 H (45.0-70.0) % Lymph % (Auto) 9.5 L (20.0-40.0) % [place] % (Auto) 9.5 (3.0-10.0) % Eos % (Auto) 3.0 (1.0-5.0) % Baso % (Auto) 0.3 (0.0-0.5) % Neut # (Auto) 11.03 H (2.00-7.50) K/uL Lymph # (Auto) 1.35 L (1.50-4.00) K/uL [place] # (Auto) 1.35 H (0.20-0.80) K/uL Eos # (Auto) 0.42 H (0.04-0.40) K/uL Baso # (Auto) 0.04 (0.02-0.10) K/uL Sodium 140 (136-145) mmol/L Potassium 3.7 (3.5-5.1) mmol/L Chloride 103 (98-107) mmol/L Carbon Dioxide 30.4 (21.0-32.0) mmol/L Anion Gap 10.3 (5.0-15.0) mmol/L BUN 7 L D (8-26) mg/dL Creatinine 0.55 (0.55-1.02) mg/dL Est Cr Clr Drug Dosing TNP Estimated GFR (MDRD) > 60 (>60) MLS/MIN BUN/Creatinine Ratio 12.7 (6-25) Glucose 89 (74-100) mg/dL Calcium 8.5 (8.5-10.1) mg/dL Med Orders - Current: Current Medications Acetaminophen (Tylenol Arthritis Pain) 650 mg PO Q4H PRN PRN Reason: Pain Albuterol/Ipratropium (Duoneb 3.0-0.5 Mg/3 Ml) 3 ml INH Q4H PRN PRN Reason: Shortness of Breath Last Admin: 03/20/19 03:43 Dose: 3 ml Diatrizoate Meglum/Diatrizoate Sod (Gastrografin 37%) 30 ml PO ASDIRECTED [facility] Stop: 03/20/19 23:59 Last Admin: 03/20/19 08:15 Dose: 30 ml Hydromorphone HCl (Dilaudid) 0.5 mg IVPUSH Q3H PRN PRN Reason: Pain Last Admin: 03/20/19 06:07 Dose: 0.5 mg Promethazine HCl 25 mg/ Sodium (Chloride) 51 mls @ 200 mls/hr IV Q6H PRN PRN Reason: Nausea/Vomiting Last Admin: 03/19/19 13:40 Dose: 200 mls/hr Lactated Ringer's (Ringers, Lactated) 1,000 mls @ 75 mls/hr IV ASDIRECTED [facility] Last Admin: 03/20/19 03:47 Dose: 75 mls/hr Ceftriaxone Sodium 1 gm/ (Sodium Chloride) 50 mls @ 200 mls/hr IV Q24H [facility] Last Admin: 03/20/19 11:08 Dose: 200 mls/hr Lactobacillus Acidophilus (Acidolphilus Extra Strength) 1 tab PO DAILY [facility] Metoprolol Tartrate (Lopressor) 50 mg PO BID [facility] Last Admin: 03/20/19 07:19 Dose: 50 mg Advair 250/50 Diskus (Own Med) 1 each INH BID [facility] Last Admin: 03/20/19 07:19 Dose: 1 each Discontinued Medications Hydromorphone HCl (Dilaudid) Confirm Administered Dose 2 mg .ROUTE .STK-MED ONE Stop: 03/18/19 23:33 Last Admin: 03/18/19 23:49 Dose: Not Given Hydromorphone HCl (Dilaudid) Confirm Administered Dose 2 mg .ROUTE .STK-MED ONE Stop: 03/19/19 13:07 Last Admin: 03/19/19 15:36 Dose: Not Given Hydromorphone HCl (Dilaudid) Confirm Administered Dose 2 mg .ROUTE .STK-MED ONE Stop: 03/19/19 17:32 Last Admin: 03/19/19 17:37 Dose: Not Given Hydromorphone HCl (Dilaudid) Confirm Administered Dose 2 mg .ROUTE .STK-MED ONE Stop: 03/19/19 20:03 Last Admin: 03/19/19 20:04 Dose: Not Given Sodium Chloride (Normal Saline) 1,000 mls @ 125 mls/hr IV ASDIRECTED [facility] Last Infusion: 03/18/19 22:47 Dose: 125 mls/hr Ketorolac Tromethamine (Toradol) 30 mg IVPUSH ONETIME ONE Stop: 03/20/19 15:12 Last Admin: 03/20/19 15:43 Dose: 30 mg Non-Formulary Medication (Fluticasone/Salmeterol [Advair 250-50 Diskus]) 1 puff INH BID [facility] Last Admin: 03/18/19 22:00 Dose: Not Given Non-Formulary Medication (Metoprolol Tartrate [Metoprolol Tartrate]) 50 mg PO BID [facility] Last Admin: 03/18/19 22:10 Dose: 50 mg Sodium Chloride (Normal Saline) 1,000 ml .ROUTE .STK-MED ONE Stop: 03/18/19 18:41 - Exam Quality Assessment: Reports: Supplemental Oxygen General: Reports: Alert, Oriented, Cooperative HEENT: Reports: Mucous Membr. Moist/[place] Neck: Reports: Supple, Trachea Midline Lungs: Reports: Clear to Auscultation, Decreased Breath Sounds (to bases) Cardiovascular: Reports: Regular Rate, Regular Rhythm GI/Abdominal Exam: Normal Bowel Sounds, Soft, Non-Tender Back Exam: Reports: Other (left lower thoracic rib pain with palpation) Extremities: Normal Inspection, No Pedal Edema, Normal Capillary Refill Skin: Reports: Warm, Dry Neurological: Reports: No New Focal Deficit Psy/Mental Status: Reports: Alert, Normal Affect, Normal Mood
[2019-03-21] MEDS ORDERED: Lactobacillus Acidophilus/Lactobacillus Sporogenes (Probiotic) Tab PO SCH (08:00)
== END 2019-03-20 17:36 | disposition home or self-care (01) ==
LOC: LB.ED 18:23 → LB.MS 20:18 → UNDOADMOB 20:18 → LB.MS 20:31
PROVIDERS: ADMIT Nurse Practitioner Family; ATTEND Nurse Practitioner Family
DX: K56.600 Partial intestinal obstruction, unspecified as to cause (principal); N12 Tubulo-interstitial nephritis, not specified as acute or chronic; M94.0 Chondrocostal junction syndrome [Tietze]; I10 Essential (primary) hypertension; J44.9 Chronic obstructive pulmonary disease, unspecified; Z79.51 Long term (current) use of inhaled steroids; Z79.899 Other long term (current) drug therapy
CPT/HCPCS: 36415; 74176; 80048; 80053; 81001; 85025; 96361; 96365; 96375; 96376; 99217; 99219; 99225; 99285; A9270; G0378; J0696; J1170; J1885; J2550; J7030; J7050; J7120; Q9963; J7620-GY

== ENCOUNTER 2019-08-20 17:31 | Inpatient (IN) | payer MEDICARE, OTHER ==
[2019-08-20] MEDS ORDERED: Albuterol/Ipratropium 3.0-0.5 MG/3 ML Neb Soln NEB PRN (17:41)
[2019-08-20] MEDS ORDERED: Azithromycin 250 MG Tab ONE (17:45)
[2019-08-20] MEDS ORDERED: predniSONE 10 MG Tab ONE (17:45)
[2019-08-20] MEDS ORDERED: predniSONE 20 MG Tab PO ONE (18:30)
[2019-08-20] MEDS ORDERED: Albuterol/Ipratropium 3.0-0.5 MG/3 ML Neb Soln NEB ONE (19:02)
[2019-08-20] MEDS ORDERED: Non-Formulary Medication 1 Each (Fluticasone/Salmeterol [Advair 250-50 Diskus] 1 PUFF) INH SCH (20:00)
[2019-08-20] MEDS ORDERED: predniSONE 20 MG Tab PO SCH (20:00)
[2019-08-20] MEDS: DICLOFENAC SODIUM 50 MG PO SCH (21:05)
[2019-08-20] MEDS: Metoprolol Tartrate 50 MG Tab PO SCH (21:05)
[2019-08-20] MEDS: Albuterol/Ipratropium 3.0-0.5 MG/3 ML Neb Soln NEB SCH ×2 (21:14→23:29)
[2019-08-20] MEDS: cefTRIAXone 1 GM in Sodium Chloride 0.9% 50 ML IV SCH (21:15)
[2019-08-20] MEDS: Nicotine 14 MG/24 Hr Patch TRDERM SCH (22:47)
[2019-08-20] MEDS: Formoterol/Mometasone 200-5 MCG 8.8 GM Inhaler IH SCH (22:48)
--- NOTE | 2019-08-20 23:14 | ER ---
REASON FOR EMERGENCY ROOM VISIT: Exacerbation of COPD symptoms. HISTORY: This 79-year-old woman was brought in by ambulance with increasing coughing and shortness of breath and generally an increase in her usual COPD type symptoms. Two or 3 days ago, she began to experience some sneezing and what she described as a "head cold" with nasal fullness. The coughing increased and she became progressively more short of breath over the last 2 days, culminating in her calling the ambulance to be brought to the emergency room today. She denies any fever or chills over the past 2 days. Her appetite has been decreased, although she has had no nausea, vomiting, or diarrhea. She denies any fever or chills. She has not had any myalgias. In spite of her active COPD, she admits that she still smokes anywhere from 1/3 to 1/4 of a pack of cigarettes per day. She is on oxygen typically only at night at home. MEDICATIONS: Include metoprolol tartrate 50 mg p.o. b.i.d., Advair Diskus 1 puff b.i.d., diclofenac 50 mg p.o. t.i.d., and albuterol inhaler at home for rescue. ALLERGIES: NONE TO MEDICATIONS. PAST MEDICAL HISTORY: 1. Mastectomy in 2008 for breast cancer. 2. History of hypertension. 3. History of COPD as noted above. 4. Anxiety. 5. History of small-bowel obstruction. 6. History of pyelonephritis. REVIEW OF SYSTEMS: Pertinent positives and negatives as listed in the HPI. SOCIAL HISTORY: She lives alone. She is as of 1-2 years ago. She lives a few blocks away from the hospital. She does still actively smoke. PHYSICAL EXAMINATION: GENERAL: She is somewhat anxious looking, but is alert and in no acute distress. VITAL SIGNS: Otherwise, she is afebrile. Heart rate is 81, blood pressure 190/87, respiratory rate is 22, O2 sats 96% on 3 L of oxygen by nasal cannula. HEENT: Head is normocephalic. No conjunctivitis is noted. Oropharynx appears normal. NECK: Supple. No adenopathy. No JVD. Trachea is midline. CHEST: She has scattered wheezes and rhonchi, but reasonably good air exchange bilaterally. ABDOMEN: Soft and nontender. No palpable masses. EXTREMITIES: Reasonably pink and warm. No cyanosis. No deformities. No edema. NEUROLOGIC: She moves all 4 extremities equally well. Deep tendon reflexes were not tested. LABORATORY: Her CBC was normal. CMP was normal. IMAGING: Her chest x-ray does not show any definite acute pulmonary disease or evidence of pulmonary edema. Her EKG does not show any acute changes. IMPRESSION: Acute exacerbation of chronic obstructive pulmonary disease. FURTHER EMERGENCY ROOM COURSE: She was given 1 DuoNeb treatment and improved significantly following this where she now feels that she is back to baseline after 1 treatment. PLAN: She will receive 1 more DuoNeb treatment and after observing her for a couple of hours, I decided to put her on a prednisone burst therapy. She received 40 mg p.o. in the emergency room here and we will give her 15, 10 mg tablets. She is instructed to take 2 of these twice a day until they are all gone. Additionally, we will obtain a nasal swab for influenza A and B, and I am going to go ahead and give her a Z-Regan. She did receive the first 500 mg of this while in the emergency room and she is instructed to take the remaining doses for the next 4 days at home. I emphasized to her the importance of following up with her provider on Monday (3 days from now before the weekend). She understands and agrees with this plan. All questions were answered. JOSUE /[id number]
--- NOTE | 2019-08-21 02:29 | HP ---
REASON FOR ADMISSION: Acute exacerbation of COPD. HISTORY: This 79-year-old woman who was brought in by paramedics with increasing shortness of breath and cough. She had a longstanding history of COPD and was maintained on an Advair inhaler as well as an albuterol rescue inhaler at home. She also had a long-standing history of smoking, which remains active. Over the past 2 days or so, she has had increasing symptoms of upper respiratory infection with nasal congestion. Eventually, also started to involve increased coughing and shortness of breath. She is on home oxygen at night. She has not had any fever or chills. The other details concerning the HPI are as noted in the emergency room note dictated earlier today. PAST MEDICAL HISTORY: See the emergency room note. MEDICATIONS: Reviewed. See EMR. REVIEW OF SYSTEMS: Pertinent positives and negatives as listed in the HPI of the emergency room visit. ALLERGIES: NONE TO MEDICATIONS. PHYSICAL EXAMINATION: GENERAL: She appeared somewhat anxious. VITAL SIGNS: She was afebrile, pulse of 81, blood pressure 190/87, respiratory rate 22, O2 sats 96% on 3 L of oxygen per nasal cannula. HEENT: Unremarkable. NECK: No JVD. No adenopathy. CHEST: She has scattered expiratory wheezes and rhonchi, but reasonably good air exchange. CARDIAC: Regular rate without murmur. ABDOMEN: Soft, nontender. No hepatosplenomegaly. No masses. EXTREMITIES: [place] and warm. No edema noted. SKIN: No rashes. IMPRESSION: Acute exacerbation of chronic obstructive pulmonary disease. EMERGENCY ROOM COURSE: CMP, CBC, chest x-ray, and EKG were obtained. CBC was normal as was the CMP. Her chest x-ray did not show any distinct infiltrates or evidence of pulmonary edema. EKG did not show any acute changes. She received 1 dose of DuoNeb in the ER and experienced a remarkable improvement. Our plan was to start her on a course of prednisone burst therapy of 40 mg a day x4 days and to start her on a Z-Regan. The patient expressed considerable anxiety and doubts about her ability to get along at home with her shortness of breath and some of the weakness as well as anxiety about this and therefore a decision was made to go ahead and admit her to the hospital for overnight observation and continued DuoNeb treatments. We will monitor her progress and see how she is doing in the morning. We did get a flu swab and influenza swab at all. Also, it should be mentioned and that was negative for influenza A and influenza B. CHEN/AYE
[2019-08-21] MEDS: Albuterol/Ipratropium 3.0-0.5 MG/3 ML Neb Soln NEB SCH ×6 (04:55→23:57)
[2019-08-21] MEDS: Formoterol/Mometasone 200-5 MCG 8.8 GM Inhaler IH SCH ×2 (08:00→19:45)
[2019-08-21] MEDS ORDERED: predniSONE 20 MG Tab PO ONE (08:00)
[2019-08-21] MEDS ORDERED: predniSONE 20 MG Tab PO SCH (08:00)
--- NOTE | 2019-08-21 08:46 | CR ---
Date of Service: 08/20/19 Clinical Data: SOB AP PORTABLE CHEST: Comparison is made to a prior exam dated 05/31/18. The heart size is normal. The lungs are clear. No pneumothorax. No pleural effusions. No changes from the prior exam. No evidence of acute intrathoracic disease. [id number] [facility]
[2019-08-21] MEDS: Metoprolol Tartrate 50 MG Tab PO SCH ×2 (09:00→19:40)
[2019-08-21] MEDS: Azithromycin 250 MG Tab PO SCH ×2 (09:20→19:40)
[2019-08-21] MEDS: predniSONE 10 MG Tab PO SCH (09:21)
[2019-08-21] MEDS: DICLOFENAC SODIUM 50 MG PO SCH ×3 (09:29→19:44)
--- NOTE | 2019-08-21 10:15 | PN ---
DATE OF VISIT: 08/21/2019 SUBJECTIVE: Pratima had an uneventful night, although she feels quite washed out and tired. She states that she has noticed less wheezing since the DuoNeb treatments and the antibiotics. OBJECTIVE: VITAL SIGNS: She remains afebrile. Her blood pressure this morning was 179/80 with a heart rate of 95 and O2 saturation was 90 on 3 L of oxygen per nasal cannula. CHEST: She still has some expiratory wheezes and rhonchi, although they are diminished compared to last night. IMPRESSION: Acute exacerbation of chronic obstructive pulmonary disease, improved. PLAN: We will continue this throughout the day today and reassess in the morning. I would anticipate there is a good chance she could go home tomorrow after she gets another dose of Rocephin, but that depends on how she is doing obviously. CHEN/AYE /[id number]
[2019-08-21] MEDS: cefTRIAXone 1 GM in Sodium Chloride 0.9% 50 ML IV SCH (21:11)
[2019-08-21] MEDS: Sodium Chloride 0.9% 10 ML Syringe FLUSH PRN ×2 (21:15→21:54)
[2019-08-21] MEDS: Nicotine 14 MG/24 Hr Patch TRDERM SCH ×2 (21:18→21:21)
[2019-08-22] MEDS: Albuterol/Ipratropium 3.0-0.5 MG/3 ML Neb Soln NEB SCH ×6 (04:00→23:31)
[2019-08-22] MEDS: Nicotine 14 MG/24 Hr Patch TRDERM SCH (09:09)
[2019-08-22] MEDS: DICLOFENAC SODIUM 50 MG PO SCH ×3 (09:09→19:45)
[2019-08-22] MEDS: Formoterol/Mometasone 200-5 MCG 8.8 GM Inhaler IH SCH ×2 (09:10→19:42)
[2019-08-22] MEDS: Metoprolol Tartrate 50 MG Tab PO SCH ×2 (09:11→19:42)
[2019-08-22] MEDS: Azithromycin 250 MG Tab PO SCH (09:13)
[2019-08-22] MEDS: predniSONE 10 MG Tab PO SCH (09:13)
--- NOTE | 2019-08-22 12:46 | PN ---
DATE OF VISIT: 08/22/2019 SUBJECTIVE: Pratima seems to be doing reasonably well. She is still wheezing some and still feels quite weak. She remains on oxygen and her O2 sats are satisfactory at 95%. Her vital signs have been stable. PHYSICAL EXAMINATION: She still has scattered wheezes with few rhonchi as well. IMPRESSION: Acute exacerbation of chronic obstructive pulmonary disease. PLAN: She lives alone and she still feels quite weak and her chest sounds horrible. We will keep her for at least another day. Because of this persistent symptoms of significant chronic obstructive pulmonary disease, we will continue her antibiotics and continue her prednisone as well as a DuoNeb therapy for at least another day and she needs to be in house for this. I do not think she can go home and care for herself at this juncture. I have asked them to admit her now that her observation period has . JOSUE /[id number]
[2019-08-22] MEDS: guaiFENesin 600 MG Tab.ER PO SCH (19:42)
[2019-08-22] MEDS: cefTRIAXone 1 GM in Sodium Chloride 0.9% 50 ML IV SCH (20:57)
[2019-08-23] MEDS: Albuterol/Ipratropium 3.0-0.5 MG/3 ML Neb Soln NEB SCH ×5 (04:05→20:49)
[2019-08-23] MEDS: Azithromycin 250 MG Tab PO SCH (07:48)
[2019-08-23] MEDS: guaiFENesin 600 MG Tab.ER PO SCH ×2 (07:48→20:47)
[2019-08-23] MEDS: Formoterol/Mometasone 200-5 MCG 8.8 GM Inhaler IH SCH ×2 (07:48→20:45)
[2019-08-23] MEDS: predniSONE 10 MG Tab PO SCH (07:48)
[2019-08-23] MEDS: Metoprolol Tartrate 50 MG Tab PO SCH ×2 (07:49→20:47)
[2019-08-23] MEDS: Nicotine 14 MG/24 Hr Patch TRDERM SCH (07:52)
[2019-08-23] MEDS: DICLOFENAC SODIUM 50 MG PO SCH ×3 (07:52→20:45)
--- NOTE | 2019-08-23 09:19 | PCM.PN ---
- General Info Date of Service: 08/23/19 Subjective Update: This is a 79yo F who has been admitted for COPD exacerbation with continued wheezing and oxygen desaturation. She states she is normally around 96% at home during the day and it does drop occasionally. Today her oxygen is around 90% on 2 L. We have been trying to wean her oxygen but patient is getting short of breath. She has improved slightly but does feel much weaker and continues to have trouble breathing. Functional Status: Reports: Pain Controlled - Review of Systems General: Reports: Weakness HEENT: Reports: No Symptoms Pulmonary: Reports: Shortness of Breath, Wheezing Cardiovascular: Reports: No Symptoms Gastrointestinal: Reports: No Symptoms Genitourinary: Reports: No Symptoms Musculoskeletal: Reports: No Symptoms Skin: Reports: No Symptoms Neurological: Reports: Weakness - Patient Data Vitals - Most Recent: Last Vital Signs Temp 36.6 C 08/23/19 04:20 Pulse 81 08/23/19 07:49 Resp 16 08/23/19 04:20 BP 152/63 H 08/23/19 07:49 Pulse Ox 94 L 08/23/19 04:22 Weight - Most Recent: 46.323 kg I&O - Last 24 Hours: Intake & Output 08/22/19 08/23/19 08/23/19 22:59 06:59 14:59 Intake Total 50 Balance 50 Jan Results Last 24 Hours: Microbiology 08/21/19 Unknown MRSA Surveillance Culture - Final Nares, Right NO MRSA ISOLATED Med Orders - Current: Current Medications Albuterol/Ipratropium (Duoneb 3.0-0.5 Mg/3 Ml) 3 ml NEB Q6H PRN PRN Reason: Shortness of Breath Albuterol/Ipratropium (Duoneb 3.0-0.5 Mg/3 Ml) 3 ml NEB Q4H [facility] Last Admin: 08/23/19 07:48 Dose: 3 ml Azithromycin (Zithromax) 250 mg PO DAILY [facility] Last Admin: 08/23/19 07:48 Dose: 250 mg Guaifenesin (Mucinex) 1,200 mg PO BID [facility] Last Admin: 08/23/19 07:48 Dose: 1,200 mg Ceftriaxone Sodium 1 gm/ (Sodium Chloride) 50 mls @ 100 mls/hr IV Q24H [facility] Last Admin: 08/22/19 20:57 Dose: 100 mls/hr Metoprolol Tartrate (Lopressor) 50 mg PO BID [facility] Last Admin: 08/23/19 07:49 Dose: 50 mg Mometasone Furoate/Formoterol Fumar (Dulera 200-5 Mcg) 2 puff IH BID [facility] Last Admin: 08/23/19 07:48 Dose: 2 puff Nicotine (Habitrol) 14 mg TRDERM DAILY [facility] Last Admin: 08/23/19 07:52 Dose: 14 mg Non-Formulary Medication (Diclofenac Sodium [Voltaren]) 50 mg PO TID [facility] Last Admin: 08/23/19 07:52 Dose: Not Given Prednisone (Prednisone) 20 mg PO DAILY [facility] Last Admin: 08/23/19 07:48 Dose: 20 mg Sodium Chloride (Saline Flush) 10 ml FLUSH ASDIRECTED PRN PRN Reason: Keep Vein Open Last Admin: 08/21/19 21:54 Dose: 10 ml Discontinued Medications Albuterol/Ipratropium (Duoneb 3.0-0.5 Mg/3 Ml) 3 ml NEB ONETIME ONE Stop: 08/20/19 19:03 Last Admin: 08/20/19 17:32 Dose: 3 ml Azithromycin (Zithromax) 1,500 mg .ROUTE .STK-MED ONE Stop: 08/20/19 17:46 Nicotine (Habitrol) 14 mg TRDERM DAILY [facility] Last Admin: 08/21/19 21:18 Dose: Not Given Non-Formulary Medication (Fluticasone/Salmeterol [Advair 250-50 Diskus]) 1 puff INH BID [facility] Last Admin: 08/20/19 21:04 Dose: Not Given Prednisone (Prednisone) 20 mg PO BID [facility] Prednisone (Prednisone) 40 mg PO ONETIME ONE Stop: 08/20/19 18:31 Last Admin: 08/20/19 18:30 Dose: 40 mg Prednisone (Prednisone) 20 mg PO BID ONE Stop: 08/21/19 08:01 Prednisone (Prednisone) 150 mg .ROUTE .STK-MED ONE Stop: 08/20/19 17:46 - Exam Quality Assessment: Supplemental Oxygen General: Alert, Oriented, Cooperative HEENT: Pupils Equal, Pupils Reactive, EOMI Neck: Supple Lungs: Decreased Breath Sounds, Rhonchi, Wheezing Cardiovascular: Regular Rate, Regular Rhythm GI/Abdominal Exam: Normal Bowel Sounds, Soft, Non-Tender Back Exam: Normal Inspection Extremities: Normal Inspection Peripheral Pulses: 2+: Dorsalis Pedis (L), Dorsalis Pedis (R) Skin: Warm, Dry, Intact - Problem List & Annotations (1) COPD exacerbation SNOMED Code(s): 980995568 Code(s): J44.1 - CHRONIC OBSTRUCTIVE PULMONARY DISEASE W (ACUTE) EXACERBATION Status: Acute Priority: High Current Visit: Yes - Problem List Review Problem List Initiated/Reviewed/Updated: Yes - Plan Plan:: Patient requires continued treatment for COPD. Her exacerbation has not abated and her wheezing and oxygen desaturation continues. We will continue a slow wean of her supplemental oxygen use. Continue steroids and nebulizers as prescribed. F/u in AM. Will transfer care to [place] for the weekend.
[2019-08-23] MEDS: cefTRIAXone 1 GM in Sodium Chloride 0.9% 50 ML IV SCH (20:55)
[2019-08-24] MEDS ORDERED: predniSONE 10 MG Tab ONE (07:45)
[2019-08-24] MEDS: Albuterol/Ipratropium 3.0-0.5 MG/3 ML Neb Soln NEB SCH ×3 (07:52→11:55)
[2019-08-24] MEDS: guaiFENesin 600 MG Tab.ER PO SCH (07:56)
[2019-08-24] MEDS: Formoterol/Mometasone 200-5 MCG 8.8 GM Inhaler IH SCH (07:56)
[2019-08-24] MEDS: DICLOFENAC SODIUM 50 MG PO SCH (07:56)
[2019-08-24] MEDS: Metoprolol Tartrate 50 MG Tab PO SCH (07:57)
[2019-08-24] MEDS: predniSONE 10 MG Tab PO SCH (07:57)
[2019-08-24] MEDS: Azithromycin 250 MG Tab PO SCH (07:57)
[2019-08-24 08:01] VITALS: BP 142/69; PULSE 77
[2019-08-24] MEDS: Nicotine 14 MG/24 Hr Patch TRDERM SCH (08:01)
--- NOTE | 2019-08-24 11:01 | DISCH ---
HOSPITAL COURSE: A 79-year-old lady who has been admitted for COPD. She was initially on observation and she was not improving significantly, so she was switched to inpatient status. The patient was given a Z-Regan and she has also been given Rocephin daily. She is also on oxygen and prednisone. The patient is doing much better. She states the last couple of days things have improved a lot. The patient feels fine. She has been eating good and she has been independent with using the bathroom, and moving around her room. PHYSICAL EXAMINATION: VITAL SIGNS: Today revealed blood pressure 142/69, O2 sats are 94% on 2 L, pulse 77. She is afebrile. LUNGS: Reveal very faint end-expiratory wheezes in both upper lobes. Lungs are otherwise clear with moderate loss of air exchange, which is chronic for her. CARDIAC: Heart sounds distinct without murmurs. SKIN: Warm and dry. EXTREMITIES: There is no lower extremity edema. TREATMENT AND PLAN: The patient will be discharged today. She does have oxygen at home. We will keep her on prednisone 20 mg a day for 2 more days, then 10 mg a day. She is to continue with Mucinex b.i.d. p.r.n. and she will be done with the antibiotics. Followup in the clinic next week is advised and the patient agrees with this. She has no further questions and is happy about going home. CRS/MODL /[id number]
== END 2019-08-24 13:00 | disposition home or self-care (01) | DRG 192 ==
LOC: LB.ED 17:31 → LB.MS 19:04 → UNDOADMIN 19:04 → INTOOBSV 19:22 → LB.MS 19:22 → OBSVTOIN 08-22 10:03
PROVIDERS: ADMIT Surgery; ATTEND Surgery
DX: J44.1 Chronic obstructive pulmonary disease with (acute) exacerbation (principal); I10 Essential (primary) hypertension; F41.9 Anxiety disorder, unspecified; F17.210 Nicotine dependence, cigarettes, uncomplicated; Z90.10 Acquired absence of unspecified breast and nipple; Z79.899 Other long term (current) drug therapy; Z85.3 Personal history of malignant neoplasm of breast; R53.1 Weakness; Z79.51 Long term (current) use of inhaled steroids
CPT/HCPCS: 36415; 71045; 80053; 85025; 87804; 87804-59; 93005; 94640; 99285-25; A0425; A0429; A9270-GY; J0696; J7050; J7620-GY

== ENCOUNTER 2022-02-09 19:55 | Inpatient (IN) | payer MEDICARE, OTHER ==
[2022-02-09] MEDS: Albuterol/Ipratropium 3.0-0.5 MG/3 ML Neb Soln NEB PRN (19:59)
[2022-02-09] MEDS ORDERED: methylPREDNISolone Sodium Succinate 40 MG/1 ML SDV IVPUSH ONE (20:15)
[2022-02-09] MEDS: Sodium Chloride 0.9% 1,000 ML IV SCH (20:30)
[2022-02-09] MEDS: Metoprolol Tartrate 50 MG Tab PO SCH (21:00)
[2022-02-09] MEDS ORDERED: Potassium Chloride 20 MEQ Tab.ER PO ONE (21:41)
[2022-02-09] MEDS ORDERED: cefTRIAXone 1 GM Vial IM ONE (21:47)
[2022-02-09] MEDS: cefTRIAXone 1 GM Vial IVPUSH SCH (22:20)
[2022-02-09] MEDS ORDERED: Aspirin 81 MG Tab.Chew PO ONE (22:22)
[2022-02-09] MEDS ORDERED: Dexamethasone 4 MG Tab ONE (23:35)
[2022-02-09] MEDS: Dexamethasone 4 MG Tab PO SCH (23:55)
[2022-02-10] MEDS: Azithromycin 250 MG in Sodium Chloride 0.9% 250 ML IV SCH (00:05)
[2022-02-10] MEDS: REMDESIVIR 200 MG in Sodium Chloride 0.9% 250 ML IV ONE ×2 (01:10→01:31)
[2022-02-10] MEDS: Dexamethasone 4 MG Tab PO SCH (08:17)
[2022-02-10] MEDS: Metoprolol Tartrate 50 MG Tab PO SCH ×2 (08:18→20:15)
[2022-02-10] MEDS: Multivitamins with Iron/Calcium/Folic Acid/Minerals Tab PO SCH (08:18)
[2022-02-10] MEDS ORDERED: Potassium Chloride 10 MEQ Tab.ER PO ONE (09:39)
[2022-02-10] MEDS: Arformoterol 15 MCG/2 ML Neb Soln INH SCH ×2 (09:50→20:12)
[2022-02-10] MEDS: Aspirin 81 MG Tab.Chew PO SCH (10:03)
[2022-02-10] MEDS: Albuterol/Ipratropium 3.0-0.5 MG/3 ML Neb Soln NEB PRN (10:10)
[2022-02-10] MEDS: Budesonide 0.5 MG/2 ML Neb Susp INH SCH ×2 (12:59→17:10)
[2022-02-10] MEDS: REMDESIVIR 100 MG in Sodium Chloride 0.9% 100 ML IV SCH (20:08)
[2022-02-10] MEDS: cefTRIAXone 1 GM Vial IVPUSH SCH (23:16)
[2022-02-11] MEDS: Azithromycin 250 MG in Sodium Chloride 0.9% 250 ML IV SCH ×2 (00:08→23:13)
[2022-02-11] MEDS: Arformoterol 15 MCG/2 ML Neb Soln INH SCH ×2 (07:00→20:30)
[2022-02-11] MEDS: Dexamethasone 4 MG Tab PO SCH (07:00)
[2022-02-11] MEDS: Aspirin 81 MG Tab.Chew PO SCH (07:00)
[2022-02-11] MEDS: Multivitamins with Iron/Calcium/Folic Acid/Minerals Tab PO SCH (07:00)
[2022-02-11] MEDS: Metoprolol Tartrate 50 MG Tab PO SCH ×2 (07:02→20:29)
[2022-02-11] MEDS: Budesonide 0.5 MG/2 ML Neb Susp INH SCH ×2 (13:46→21:36)
[2022-02-11] MEDS: REMDESIVIR 100 MG in Sodium Chloride 0.9% 100 ML IV SCH (20:32)
[2022-02-11] MEDS: cefTRIAXone 1 GM Vial IVPUSH SCH (22:42)
[2022-02-12] MEDS: Sodium Chloride 0.9% 1,000 ML IV SCH (04:23)
[2022-02-12] MEDS: Albuterol/Ipratropium 3.0-0.5 MG/3 ML Neb Soln NEB PRN (06:48)
[2022-02-12] MEDS: Aspirin 81 MG Tab.Chew PO SCH (07:15)
[2022-02-12] MEDS: Metoprolol Tartrate 50 MG Tab PO SCH ×2 (07:15→20:58)
[2022-02-12] MEDS: Multivitamins with Iron/Calcium/Folic Acid/Minerals Tab PO SCH (07:15)
[2022-02-12] MEDS: Dexamethasone 4 MG Tab PO SCH (07:15)
[2022-02-12] MEDS: Arformoterol 15 MCG/2 ML Neb Soln INH SCH ×2 (07:17→20:58)
[2022-02-12] MEDS: Budesonide 0.5 MG/2 ML Neb Susp INH SCH ×2 (12:46→18:29)
[2022-02-12] MEDS: REMDESIVIR 100 MG in Sodium Chloride 0.9% 100 ML IV SCH (20:59)
[2022-02-12] MEDS: cefTRIAXone 1 GM Vial IVPUSH SCH (22:15)
[2022-02-12] MEDS: Azithromycin 250 MG in Sodium Chloride 0.9% 250 ML IV SCH (23:39)
[2022-02-13] MEDS: Metoprolol Tartrate 50 MG Tab PO SCH ×2 (07:01→20:53)
[2022-02-13] MEDS: Dexamethasone 4 MG Tab PO SCH (07:01)
[2022-02-13] MEDS: Aspirin 81 MG Tab.Chew PO SCH (07:01)
[2022-02-13] MEDS: Multivitamins with Iron/Calcium/Folic Acid/Minerals Tab PO SCH (07:01)
[2022-02-13] MEDS: Arformoterol 15 MCG/2 ML Neb Soln INH SCH ×2 (07:02→20:53)
[2022-02-13] MEDS: Albuterol/Ipratropium 3.0-0.5 MG/3 ML Neb Soln NEB PRN (09:52)
[2022-02-13] MEDS ORDERED: Bisacodyl 10 MG Supp RECTAL PRN (11:05)
[2022-02-13] MEDS: Budesonide 0.5 MG/2 ML Neb Susp INH SCH ×2 (13:12→18:07)
[2022-02-13] MEDS: REMDESIVIR 100 MG in Sodium Chloride 0.9% 100 ML IV SCH (20:55)
[2022-02-13] MEDS: cefTRIAXone 1 GM Vial IVPUSH SCH (22:58)
[2022-02-13] MEDS: Azithromycin 250 MG in Sodium Chloride 0.9% 250 ML IV SCH (23:04)
[2022-02-14] MEDS: Arformoterol 15 MCG/2 ML Neb Soln INH SCH ×2 (08:12→20:56)
[2022-02-14] MEDS: Aspirin 81 MG Tab.Chew PO SCH (08:22)
[2022-02-14] MEDS: Multivitamins with Iron/Calcium/Folic Acid/Minerals Tab PO SCH (08:22)
[2022-02-14] MEDS: Metoprolol Tartrate 50 MG Tab PO SCH ×2 (08:22→20:56)
[2022-02-14] MEDS: Dexamethasone 4 MG Tab PO SCH (08:22)
[2022-02-14] MEDS: Albuterol/Ipratropium 3.0-0.5 MG/3 ML Neb Soln NEB PRN (11:45)
[2022-02-14] MEDS: Budesonide 0.5 MG/2 ML Neb Susp INH SCH ×2 (13:12→17:22)
[2022-02-14] MEDS: cefTRIAXone 1 GM Vial IVPUSH SCH (22:53)
[2022-02-15] MEDS: Metoprolol Tartrate 50 MG Tab PO SCH ×2 (09:07→20:18)
[2022-02-15] MEDS: Dexamethasone 4 MG Tab PO SCH (09:08)
[2022-02-15] MEDS: Multivitamins with Iron/Calcium/Folic Acid/Minerals Tab PO SCH (09:08)
[2022-02-15] MEDS: Budesonide 0.5 MG/2 ML Neb Susp INH SCH ×2 (12:10→18:14)
[2022-02-15] MEDS: Pantoprazole 40 MG Vial IVPUSH SCH (12:10)
[2022-02-15] MEDS: Albuterol/Ipratropium 3.0-0.5 MG/3 ML Neb Soln NEB PRN (12:10)
[2022-02-15] MEDS: Arformoterol 15 MCG/2 ML Neb Soln INH SCH (20:19)
[2022-02-15] MEDS: guaiFENesin 600 MG Tab.ER PO SCH (20:19)
[2022-02-16] MEDS: Arformoterol 15 MCG/2 ML Neb Soln INH SCH ×3 (07:50→19:29)
[2022-02-16] MEDS: Dexamethasone 4 MG Tab PO SCH (07:51)
[2022-02-16] MEDS: Metoprolol Tartrate 50 MG Tab PO SCH ×2 (07:53→19:29)
[2022-02-16] MEDS: guaiFENesin 600 MG Tab.ER PO SCH ×2 (07:54→19:29)
[2022-02-16] MEDS: Multivitamins with Iron/Calcium/Folic Acid/Minerals Tab PO SCH (07:54)
[2022-02-16] MEDS: Aspirin 81 MG Tab.Chew PO SCH ×2 (07:58→12:11)
[2022-02-16] MEDS: cefTRIAXone 2 GM in Sodium Chloride 0.9% 100 ML IV SCH (12:10)
[2022-02-16] MEDS: Pantoprazole 40 MG Vial IVPUSH SCH (12:10)
[2022-02-16] MEDS: Budesonide 0.5 MG/2 ML Neb Susp INH SCH ×2 (12:14→18:19)
[2022-02-16] MEDS ORDERED: Sodium Phosphate,Monobasic/Sodium Phosphate,Dibasic Enema 133 ML Bottle RECTAL ONE (14:23)
[2022-02-16] MEDS ORDERED: Metoclopramide 10 MG/2 ML SDV IV ONE (14:26)
[2022-02-16] MEDS: Polyethylene Glycol 3350 Powder 17 GM Packet PO SCH (19:29)
[2022-02-16] MEDS: Docusate Sodium 100 MG Cap PO SCH (19:29)
[2022-02-17] MEDS: Metoprolol Tartrate 50 MG Tab PO SCH ×2 (08:25→20:00)
[2022-02-17] MEDS: Multivitamins with Iron/Calcium/Folic Acid/Minerals Tab PO SCH (08:26)
[2022-02-17] MEDS: guaiFENesin 600 MG Tab.ER PO SCH ×2 (08:26→20:01)
[2022-02-17] MEDS: Docusate Sodium 100 MG Cap PO SCH ×2 (08:26→20:00)
[2022-02-17] MEDS: Aspirin 81 MG Tab.Chew PO SCH (08:27)
[2022-02-17] MEDS: Dexamethasone 4 MG Tab PO SCH (08:27)
[2022-02-17] MEDS: Polyethylene Glycol 3350 Powder 17 GM Packet PO SCH (08:28)
[2022-02-17] MEDS: Arformoterol 15 MCG/2 ML Neb Soln INH SCH ×2 (09:18→20:00)
[2022-02-17] MEDS: Pantoprazole 40 MG Vial IVPUSH SCH (09:18)
[2022-02-17] MEDS: cefTRIAXone 2 GM in Sodium Chloride 0.9% 100 ML IV SCH (11:00)
[2022-02-17] MEDS: Budesonide 0.5 MG/2 ML Neb Susp INH SCH ×2 (13:30→17:57)
[2022-02-17] MEDS ORDERED: Metoclopramide 10 MG/2 ML SDV IV ONE (14:44)
[2022-02-18] MEDS: Albuterol/Ipratropium 3.0-0.5 MG/3 ML Neb Soln NEB PRN ×2 (02:31→13:02)
[2022-02-18] MEDS: Arformoterol 15 MCG/2 ML Neb Soln INH SCH ×2 (07:55→20:45)
[2022-02-18] MEDS: Polyethylene Glycol 3350 Powder 17 GM Packet PO SCH (07:55)
[2022-02-18] MEDS: Dexamethasone 4 MG Tab PO SCH (07:57)
[2022-02-18] MEDS: Multivitamins with Iron/Calcium/Folic Acid/Minerals Tab PO SCH ×2 (07:58→08:02)
[2022-02-18] MEDS: guaiFENesin 600 MG Tab.ER PO SCH ×3 (07:58→20:45)
[2022-02-18] MEDS: Aspirin 81 MG Tab.Chew PO SCH (07:58)
[2022-02-18] MEDS: Docusate Sodium 100 MG Cap PO SCH ×2 (07:58→20:45)
[2022-02-18] MEDS: Metoprolol Tartrate 50 MG Tab PO SCH ×2 (07:59→20:45)
[2022-02-18] MEDS: Pantoprazole 40 MG Vial IVPUSH SCH (10:04)
[2022-02-18] MEDS: Budesonide 0.5 MG/2 ML Neb Susp INH SCH ×2 (13:02→18:26)
[2022-02-19] MEDS: Arformoterol 15 MCG/2 ML Neb Soln INH SCH (07:31)
[2022-02-19] MEDS: Dexamethasone 4 MG Tab PO SCH (07:32)
[2022-02-19 07:33] VITALS: BP 176/74; PULSE 74
[2022-02-19] MEDS: Aspirin 81 MG Tab.Chew PO SCH (07:33)
[2022-02-19] MEDS: Multivitamins with Iron/Calcium/Folic Acid/Minerals Tab PO SCH (07:33)
[2022-02-19] MEDS: guaiFENesin 600 MG Tab.ER PO SCH (07:33)
[2022-02-19] MEDS: Polyethylene Glycol 3350 Powder 17 GM Packet PO SCH (07:33)
[2022-02-19] MEDS: Docusate Sodium 100 MG Cap PO SCH (07:33)
[2022-02-19] MEDS: Metoprolol Tartrate 50 MG Tab PO SCH (07:33)
[2022-02-19] MEDS: Pantoprazole 40 MG Vial IVPUSH SCH (13:21)
== END 2022-02-19 13:50 | disposition home or self-care (01) | DRG 177 ==
LOC: LB.ED 19:55 → LB.MS 21:38 → INTOOBSV 22:44 → OBSVTOIN 22:44 → LB.MS 22:44 → UNDOADMOB 22:44
PROVIDERS: ADMIT Nurse Practitioner Family; ATTEND Nurse Practitioner Family
PROC: 3E0DX3Z Introduction of Anti-inflammatory into Mouth and Pharynx, External Approach (ICD-10-PCS; principal; 2022-02-09)
PROC: XW033E5 Introduction of Remdesivir Anti-infective into Peripheral Vein, Percutaneous Approach, New Technology Group 5 (ICD-10-PCS; 2022-02-09)
DX: U07.1 COVID-19 (principal); J12.82 Pneumonia due to coronavirus disease 2019; J96.90 Respiratory failure, unspecified, unspecified whether with hypoxia or hypercapnia; J90 Pleural effusion, not elsewhere classified; J44.0 Chronic obstructive pulmonary disease with (acute) lower respiratory infection; R32 Unspecified urinary incontinence; K59.09 Other constipation; Z85.3 Personal history of malignant neoplasm of breast; I10 Essential (primary) hypertension; Z28.9 Immunization not carried out for unspecified reason; Z79.899 Other long term (current) drug therapy; K21.9 Gastro-esophageal reflux disease without esophagitis; F32.A Depression, unspecified; Z86.718 Personal history of other venous thrombosis and embolism; Z98.49 Cataract extraction status, unspecified eye; Z90.710 Acquired absence of both cervix and uterus; Z90.12 Acquired absence of left breast and nipple; Z90.49 Acquired absence of other specified parts of digestive tract; Z99.81 Dependence on supplemental oxygen
CPT/HCPCS: 36415; 71045; 74176; 80048; 80053; 80076; 83605; 83690; 85025; 93005; 96374; 97110-GO; 97110-GP; 97116-GP; 97161-GP; 97165-GO; 97530-GO; 97530-GP; 97535-GO; 99285-25; A0425; A0429; A9270-GY; C9113; J0456; J0696; J2765; J2920; J3490; J7030; J7050; J7605; J7620; J8540; U0002